=== PATIENT | female | born 1985 | race American Indian/Alaskan Native ===

== ENCOUNTER 2018-01-11 19:50 | Emergency (ER) | payer MEDICAID, OTHER ==
[2018-01-11 21:00] LABS: BASO # 0.1 K/uL (0.0-0.2); EOS # 0.2 K/uL (0.0-0.7); EOS % 1.4 % (0.0-4.0); LYMPH # 0.5 K/uL (1.0-4.3); LYMPH % 4.6 % (20.0-40.0); MEAN CORPUSCULAR HEMOGLOBIN 23.2 pg (27.0-31.0); MEAN CORPUSCULAR HGB CONC 32.3 g/dL (33.0-37.0); MEAN PLATELET VOLUME 11.8 fL (7.2-11.7); MONO # 0.7 K/uL (0.0-0.8); MONO % 6.1 % (0.0-10.0); NEUT # 9.6 K/uL (1.8-7.0); NEUT % 86.9 % (50.0-75.0); PLATELET COUNT 279 K/uL (130-400); RBC 5.33 Mil/uL (3.80-5.20); RED CELL DISTRIBUTION WIDTH 15.6 % (11.5-14.5)
[2018-01-11 21:01] LABS: HEMOGLOBIN 12.4 g/dL (11.0-16.0); MEAN CELL VOLUME 71.7 fL (81.0-99.0); WHITE BLOOD COUNT 11.1 K/uL (4.8-10.8)
[2018-01-11 21:04] LABS: SQUAMOUS EPITHIAL 4 /hpf (0-5); URINE BILIRUBIN NEGATIVE (NEGATIVE); URINE BLOOD 1+ (NEGATIVE); URINE CLARITY Hazy (Clear); URINE COLOR Straw (YELLOW); URINE GLUCOSE (UA) 3+ mg/dL (Normal); URINE LEUKOCYTE ESTERASE 2+ Leu/uL (Negative); URINE PROTEIN NEGATIVE (NEGATIVE); URINE UROBILINOGEN NORMAL mg/dL (0.2-1.0)
[2018-01-11 21:08] LABS: HCG,QUALITATIVE URINE NEGATIVE (NEGATIVE)
[2018-01-11] MEDS ORDERED: Sodium Chloride 0.9% 1,000 ML IV ONE (21:11)
[2018-01-11] MEDS ORDERED: (Novolin R) Insulin Human Regular 100 units/ml vial IV ONE ×2 (21:13→22:43)
--- NOTE | 2018-01-11 21:14 | C.PDOC ---
Chief Complaint (Nursing): High Blood Sugar Past Medical History Vital Signs: Last Vital Signs Temp 98.1 F 01/11/18 20:28 Pulse 64 01/11/18 20:28 Resp 18 01/11/18 20:28 BP 127/88 01/11/18 20:28 Pulse Ox 98 01/11/18 20:28 - Medical History PMH: Diabetes (Type I ) Denies: Arthritis, HIV, Chronic Kidney Disease, Sexually Transmitted Disease Surgical History: (3) Family History: States: Unknown Family Hx - Social History Hx Tobacco Use: No Hx Alcohol Use: No Hx Substance Use: No - Immunization History Hx Tetanus Toxoid Vaccination: No Hx Influenza Vaccination: No Hx Pneumococcal Vaccination: No ED Course And Treatment - Laboratory Results Result Diagrams: 01/11/18 20:56 O2 Sat by Pulse Oximetry: 98 Disposition - Disposition
--- NOTE | 2018-01-11 21:17 | C.PDOC ---
History Of Present Illness 32 y/o female with longstanding history of Insulin-dependent diabetes mellitus presents to the ED for evaluation of hyperglycemia. Patient states she ran out of insulin 1-2 weeks ago. Now complaining of polyuria, polydipsia, nausea, and mild crampy abdominal pain. No vomiting. Admits to 10 lb weight loss in the past week. Denies any fever, chills, or other complaints at this time. Finger stick is 464 mg/dL on arrival. Time Seen by Provider: 01/11/18 20:58 Chief Complaint (Nursing): High Blood Sugar History Per: Patient History/Exam Limitations: no limitations Onset/Duration Of Symptoms: Days Current Symptoms Are (Timing): Still Present Current Diabetic Medications: Insulin Causative (Exacerbating) Factor(s): Missed Taking Medication Past Medical History Reviewed: Historical Data, Nursing Documentation, Vital Signs Vital Signs: Last Vital Signs Temp 101.4 F H 01/12/18 00:28 Pulse 100 H 01/12/18 00:20 Resp 20 01/12/18 00:20 BP 139/90 01/12/18 00:20 Pulse Ox 98 01/12/18 00:55 - Medical History PMH: Diabetes (Type I ) Denies: Arthritis, HIV, Chronic Kidney Disease, Sexually Transmitted Disease Surgical History: (3) Family History: States: Unknown Family Hx - Social History Hx Tobacco Use: No Hx Alcohol Use: No Hx Substance Use: No - Immunization History Hx Tetanus Toxoid Vaccination: No Hx Influenza Vaccination: No Hx Pneumococcal Vaccination: No Review Of Systems Except As Marked, All Systems Reviewed And Found Negative. Constitutional: Positive for: Weight loss, Other (Polydipsia). Negative for: Fever, Chills Gastrointestinal: Positive for: Nausea, Abdominal Pain. Negative for: Vomiting Genitourinary: Positive for: Other (Polyuria) Physical Exam - Physical Exam Appears: Other (Alert, Awake, Thin body habitus) Skin: Warm, Dry, No Rash, Other (Diminished skin turgor) Head: Atraumatic, Normacephalic Eye(s): bilateral: PERRL, EOMI, Other (Sunken eyes) Oral Mucosa: Dry Neck: Normal ROM, Supple Cardiovascular: Rhythm Regular, Other (S1, S2 are wnl) Respiratory: No Rales, No Rhonchi, No Wheezing, Other (Lungs CTA bilaterally) Gastrointestinal/Abdominal: Soft, Tenderness (mild generalized discomfort on palpation), No Guarding, No Rebound Extremity: Bilateral: Atraumatic, Normal Color And Temperature (with no edema, clubbing, or cyanosis) Pulses: Left Dorsalis Pedis: Normal, Right Dorsalis Pedis: Normal Neurological/Psych: Normal Speech, Normal Cranial Nerves (CN 2-12 intact), No Other (focal deficits) Gait: Steady ED Course And Treatment - Laboratory Results Result Diagrams: 01/11/18 20:56 01/11/18 20:56 O2 Sat by Pulse Oximetry: 98 (RA) Pulse Ox Interpretation: Normal Medical Decision Making Medical Decision Making: Initial Impression: Hyperglycemia, rule out DKA, dehydration Time: 21:11 Initial Plan: * Labs * Insulin 10 units IV * IVF hydration * Reassessment after fluids given 22:44 Patient witnessed with vomiting in the ER, given Zofran. Also given second dose of Insulin. 23:48 Repeat blood sugar is 305 On reevaluation patient is AAOx3, afebrile, ambulating with steady gait. Reports improvement in symptoms. Labs reviewed, indicative of UTI Patient will be discharged home with prescriptions for Novolog, Levemir, and Macrobid. Patient advised to follow up with the clinic. Disposition Counseled Patient/Family Regarding: Studies Performed, Diagnosis, Need For Followup, Rx Given - Disposition Referrals: [facility] [Outside] Disposition: HOME/ ROUTINE Disposition Time: 00:11 Condition: FAIR Prescriptions: Insulin Aspart [Novolog] 25 unit SC DAILY #1 vial Insulin Detemir [Levemir] 25 unit SC DAILY #1 vial Nitrofurantoin Macrocrystals [Macrobid] 100 mg PO BID #14 cap Instructions: Urinary Tract Infections in Adults, Hyperglycemia, Adult Forms: [employer] (Telugu), Work Excuse Print Language: HAITIAN - Clinical Impression Clinical Impression: Urinary tract infection, Hyperglycemia - Scribe Statement The provider has reviewed the documentation as recorded by the Scribe (Fadumo Webb) Provider Attestation: All medical record entries made by the Scribe were at my direction and personally dictated by me. I have reviewed the chart and agree that the record accurately reflects my personal performance of the history, physical exam, medical decision making, and the department course for this patient. I have also personally directed, reviewed, and agree with the discharge instructions and disposition.
[2018-01-11] MEDS ORDERED: (Novolin R) Insulin Human Regular 100 units/ml vial ONE ×2 (21:22→22:43)
[2018-01-11] MEDS ORDERED: Sodium Chloride 0.9% 1,000 ML ONE (21:22)
[2018-01-11 21:31] LABS: ALB/GLOB RATIO 0.8 (1.0-2.1); ALBUMIN 4.2 g/dL (3.5-5.0); ALT/SGPT 10 U/L (9-52); AST/SGOT 38 U/L (14-36); BLOOD UREA NITROGEN 9 mg/dL (7-17); CALCIUM 9.3 mg/dl (8.6-10.4); GFR AFRICAN-AMERICAN > 60; GFR NON-AFRICAN AMERICAN > 60
[2018-01-11 21:39] LABS: LYMPHOCYTE 3 % (20-40); MONOCYTE 4 % (0-10); NEUTROPHIL 93 % (50-75); TOTAL CELLS COUNTED 100
[2018-01-11 21:40] LABS: ANISOCYTOSIS SLIGHT; PLATELET ESTIMATE NORMAL (NORMAL)
[2018-01-11 21:42] LABS: ABG ALLEN TEST POS; ARTERIAL BLOOD GAS HCO3 25.9 mmol/L (21-28); ARTERIAL BLOOD GAS HEMOGLOBIN 11.3 g/dL (11.7-17.4); ARTERIAL BLOOD GAS O2 SAT 98.9 % (95-98); ARTERIAL BLOOD GAS PCO2 35 mm/Hg (35-45); ARTERIAL BLOOD GAS PH 7.46 (7.35-7.45); ARTERIAL BLOOD GAS PO2 93 mm/Hg (80-100)
[2018-01-12 00:21] VITALS: BP 139/90; PULSE 100; RESP 20; TEMP 101.4
[2018-01-12 00:51] VITALS: O2SAT 98
== END 2018-01-12 00:50 | disposition home or self-care (01) ==
LOC: C.ER 19:50
DX: E11.65 Type 2 diabetes mellitus with hyperglycemia (principal); N39.0 Urinary tract infection, site not specified; Z79.4 Long term (current) use of insulin
CPT/HCPCS: 36600; 80053; 81001; 82009; 82803; 82948; 84484; 84703; 85025; 87086; 87181; 96374; 96375; 96376; 99285; J2405; J7040

== ENCOUNTER 2018-10-15 13:05 | Emergency (ER) | payer MEDICAID, OTHER ==
[2018-10-15 13:13] VITALS: BMI 20.3
[2018-10-15] MEDS ORDERED: Sodium Chloride 0.9% 1,000 ML IV ONE (13:58)
[2018-10-15 14:22] LABS: VENOUS BLOOD GAS BASE EXCESS -1.8 mmol/L (0.0-2.0); VENOUS BLOOD GAS PCO2 65 mmHg (40-60); VENOUS BLOOD GAS PO2 20 mm/Hg (30-55); VENOUS BLOOD PH 7.23 (7.32-7.43)
--- NOTE | 2018-10-15 14:23 | C.PDOC ---
History Of Present Illness 33 year old female with a history of diabetes and previous DKA presents to the emergency department with complaints of leg swelling for the past week. Patient reports being hyperglycemic. Of note, upon triage patient was noted to be polyuric and polyphagic. Patient denies fever, chills, nausea, vomiting, diarrhea, chest pain, shortness of breath. Time Seen by Provider: 10/15/18 13:53 Chief Complaint (Nursing): Lower Extremity Problem/Injury History Per: Patient History/Exam Limitations: no limitations Onset/Duration Of Symptoms: Other (one week) Current Symptoms Are (Timing): Still Present Past Medical History Reviewed: Historical Data, Nursing Documentation, Vital Signs Vital Signs: Last Vital Signs Temp 97.6 F 10/15/18 13:13 Pulse 80 10/15/18 13:13 Resp 20 10/15/18 13:13 BP 137/93 H 10/15/18 13:13 Pulse Ox 100 10/15/18 13:13 - Medical History PMH: Diabetes (Type I ) Denies: Arthritis, HIV, Chronic Kidney Disease, Sexually Transmitted Disease Surgical History: (3) Family History: States: Unknown Family Hx - Social History Hx Tobacco Use: No Hx Alcohol Use: No Hx Substance Use: No - Immunization History Hx Tetanus Toxoid Vaccination: No Hx Influenza Vaccination: No Hx Pneumococcal Vaccination: No Review Of Systems Except As Marked, All Systems Reviewed And Found Negative. Cardiovascular: Negative for: Chest Pain Respiratory: Negative for: Shortness of Breath Gastrointestinal: Negative for: Nausea, Vomiting, Abdominal Pain, Diarrhea Musculoskeletal: Positive for: Leg Pain (leg swelling) Physical Exam - Physical Exam Appears: Non-toxic, No Acute Distress Skin: Normal Color, Warm, Dry Head: Atraumatic, Normacephalic Eye(s): bilateral: Normal Inspection, PERRL, EOMI Oral Mucosa: Moist Neck: Normal, Supple Chest: Symmetrical, No Tenderness Cardiovascular: Rhythm Regular, No Murmur Respiratory: Normal Breath Sounds, No Rales, No Rhonchi, No Wheezing Gastrointestinal/Abdominal: Soft, No Tenderness Extremity: Swelling (b/l leg swelling) Neurological/Psych: Oriented x3, Normal Speech, Normal Cognition ED Course And Treatment - Laboratory Results Result Diagrams: 10/15/18 14:12 10/15/18 14:12 O2 Sat by Pulse Oximetry: 100 (RA) Pulse Ox Interpretation: Normal - Other Rad CXR X-Ray: Viewed By Me, Read By Radiologist Interpretation: IMPRESSION: No acute cardiopulmonary disease appreciated. Medical Decision Making Medical Decision Making: ro dka dvt Plan: VBG EKG Chemistry Bloodwork CXR NaCl IV Fluids HCG Qualitative Urine Urinalysis Venous Duplex Scan ekg nsr 78 no t wave changes normal intervals. labs mild resp acidosis. bicarb normal no ketones no e/o of dka. non specifc LA. no sirs afebrile. pt well appearing, urine treated. sugar improve.d pt sleeping in nad. advise close outpt fu and return precautions. dvt study neg. no cardio pulm complaints. Disposition - Disposition Referrals: [facility] [Outside] [facility] [Outside] Disposition: HOME/ ROUTINE Disposition Time: 02:17 Condition: STABLE Additional Instructions: return to any er with worsening symptoms or concenrs. please follow up with your doctor/clinic. Prescriptions: RX: Cefpodoxime [Vantin] 100 mg PO BID #20 tab Instructions: Urinary Tract Infections in Adults, Hyperglycemia, Adult, Dependent Edema (DC) Forms: [employer] (Trinidadian) - Clinical Impression Clinical Impression: UTI (urinary tract infection), Hyperglycemia - Scribe Statement The provider has reviewed the documentation as recorded by the Scribe (Surinder ni) Provider Attestation: All medical record entries made by the Scribe were at my direction and personally dictated by me. I have reviewed the chart and agree that the record accurately reflects my personal performance of the history, physical exam, medical decision making, and the department course for this patient. I have also personally directed, reviewed, and agree with the discharge instructions and disposition.
[2018-10-15 14:25] LABS: BASO % 0.6 % (0.0-2.0); EOS % 0.1 % (0.0-4.0); HEMOGLOBIN 10.7 g/dL (11.0-16.0); LYMPH # 0.9 K/uL (1.0-4.3); LYMPH % 24.5 % (20.0-40.0); MEAN CORPUSCULAR HEMOGLOBIN 23.6 pg (27.0-31.0); MEAN CORPUSCULAR HGB CONC 30.4 g/dL (33.0-37.0); MEAN PLATELET VOLUME 9.9 fL (7.2-11.7); MONO # 0.3 K/uL (0.0-0.8); NEUT # 2.5 K/uL (1.8-7.0); NEUT % 65.8 % (50.0-75.0); NRBC % 0.1 % (0.0-2.0); RBC 4.51 Mil/uL (3.80-5.20); RED CELL DISTRIBUTION WIDTH 15.8 % (11.5-14.5)
[2018-10-15 14:31] LABS: INR 0.9
[2018-10-15 14:32] LABS: MEAN CELL VOLUME 77.7 fL (81.0-99.0); WHITE BLOOD COUNT 3.8 K/uL (4.8-10.8)
[2018-10-15 14:40] LABS: HCG,QUALITATIVE URINE NEGATIVE (NEGATIVE)
[2018-10-15 14:44] LABS: SQUAMOUS EPITHIAL 2 /hpf (0-5); URINE BACTERIA OCC (<OCC); URINE BILIRUBIN NEGATIVE (NEGATIVE); URINE BLOOD NEGATIVE (NEGATIVE); URINE CLARITY Clear (Clear); URINE COLOR Yellow (YELLOW); URINE GLUCOSE (UA) 3+ mg/dL (Normal); URINE LEUKOCYTE ESTERASE NEG Leu/uL (Negative); URINE PROTEIN NEGATIVE (NEGATIVE); URINE UROBILINOGEN NORMAL mg/dL (0.2-1.0)
[2018-10-15 14:51] LABS: PROTHROMBIN TIME 9.8 SECONDS (9.7-12.2)
[2018-10-15 14:57] LABS: B-TYPE NATRIURETIC PEPTIDE 84.2 pg/mL (0-450)
[2018-10-15 15:07] LABS: ALB/GLOB RATIO 1.2 (1.0-2.1); ALT/SGPT 40 U/L (9-52); AST/SGOT 50 U/L (14-36); BLOOD UREA NITROGEN 18 mg/dL (7-17); CALCIUM 8.3 mg/dl (8.6-10.4); GFR NON-AFRICAN AMERICAN > 60
--- NOTE | 2018-10-15 15:28 | RAD ---
Date of service: 10/15/2018 HISTORY: chest pain COMPARISON: None available. FINDINGS: LUNGS: No active pulmonary disease. PLEURA: No significant pleural effusion identified, no pneumothorax apparent. CARDIOVASCULAR: No aortic atherosclerotic calcification present. Normal cardiac size. No pulmonary vascular congestion. OSSEOUS STRUCTURES: No significant abnormalities. VISUALIZED UPPER ABDOMEN: Normal. OTHER FINDINGS: None. IMPRESSION: No acute cardiopulmonary disease appreciated.
[2018-10-15] MEDS ORDERED: (Novolin R) Insulin Human Regular 100 units/ml vial IVP STA (15:30)
[2018-10-15] MEDS ORDERED: (Novolin R) Insulin Human Regular 100 units/ml vial ONE (15:49)
[2018-10-15 16:21] VITALS: O2SAT 100
[2018-10-15 17:16] VITALS: BP 121/80; PULSE 89; RESP 19; TEMP 98.5
--- NOTE | 2018-10-18 11:38 | VASCLAB ---
Date of service: 10/15/2018 PROCEDURE: Lower Extremity Venous Duplex Exam. HISTORY: Pain / Swelling PRIORS: None. TECHNIQUE: Bilateral common femoral, femoral, popliteal and posterior tibial, peroneal and great saphenous veins were evaluated. Flow was assessed with color Doppler, compressibility, assessment of phasic flow and augmentation response. Report prepared by Juan Holliday, BS, RVT FINDINGS: RIGHT: 1. Common Femoral Vein: 1.1. Compressibility - Fully compressible: Thrombus - None : Flow - Phasic: Augmentation -Normal: Reflux - None. 2. Femoral Vein: 2.1. Compressibility - Fully compressible: Thrombus - None : Flow - Phasic: Augmentation -Normal: Reflux - None. 3. Popliteal Vein: 3.1. Compressibility - Fully compressible: Thrombus - None : Flow - Phasic: Augmentation -Normal: Reflux - None. 4. Posterior Tibial Vein: 4.1. Compressibility - Fully compressible: Thrombus - None: Flow - Phasic: Augmentation -Normal: Reflux - None. 5. Peroneal Vein: 5.1. Compressibility - Fully compressible: Thrombus - None: Flow - Phasic: Augmentation -Normal: Reflux - None. 6. Great Saphenous Vein: 6.1. Compressibility - Fully compressible: Thrombus - None: Flow - Phasic: Augmentation - Normal: Reflux - None. LEFT: 1. Common Femoral Vein: 1.1. Compressibility - Fully compressible: Thrombus - None: Flow - Phasic: Augmentation -Normal: Reflux - None. 2. Femoral Vein: 2.1. Compressibility - Fully compressible: Thrombus - None: Flow - Phasic: Augmentation -Normal: Reflux - None. 3. Popliteal Vein: 3.1. Compressibility - Fully compressible: Thrombus - None : Flow - Phasic: Augmentation -Normal: Reflux - None. 4. Posterior Tibial Vein: 4.1. Compressibility - Fully compressible: Thrombus - None: Flow - Phasic: Augmentation -Normal: Reflux - None. 5. Peroneal Vein: 5.1. Compressibility - Fully compressible: Thrombus - None: Flow - Phasic: Augmentation -Normal: Reflux - None. 6. Great Saphenous Vein: 6.1. Compressibility - Fully compressible: Thrombus - None: Flow - Phasic: Augmentation - Normal: Reflux - None. OTHER FINDINGS: Right: None significant. Left: None significant. IMPRESSION: Right: No evidence of deep or superficial vein thrombosis of the right lower extremity. Normal valve function noted of the right side. Left: No evidence of deep or superficial vein thrombosis of the left lower extremity. Normal valve function noted of the left side.
== END 2018-10-15 17:34 | disposition home or self-care (01) ==
LOC: C.ER 13:05
DX: N39.0 Urinary tract infection, site not specified (principal); E10.65 Type 1 diabetes mellitus with hyperglycemia; Z79.4 Long term (current) use of insulin
CPT/HCPCS: 71045; 80053; 81001; 82009; 82803; 82948; 83735; 83880; 84484; 84703; 85025; 85610; 85730; 93970; 96361; 96365; 96375; 99285; J0696; J7030